=== PATIENT | female | born 1960 | race Caucasian/White ===

== ENCOUNTER 2018-02-16 07:34 | Emergency (ER) | payer MEDICAID ==
[~2018-02-16] VITALS: Ht 180.3 cm; Wt 64.7 kg
[~2018-02-16 07:34] MED LIST: CYCL-1 PO
[2018-02-16 07:48] VITALS: BP 128/77
[2018-02-16] MEDS ORDERED: TRAM50TA2 PO (08:43)
== END 2018-02-16 09:22 | disposition home or self-care (01) ==
LOC: ER 07:35
DX: M25.511 Pain in right shoulder (principal); Z98.890 Other specified postprocedural states; Z79.899 Other long term (current) drug therapy
CPT/HCPCS: 73030; 99284